=== PATIENT | male | born 1935 | race Caucasian/White ===

== ENCOUNTER → 2022-08-23 14:59 | Outpatient (CLI) | payer MEDICARE, OTHER, SELFPAY ==
--- NOTE | 2022-08-23 | DI.RAD.S_ITS ---
PROCEDURE: XR CHEST 2V INDICATIONS: shortness of breath TECHNIQUE: 2 views of the chest were acquired. COMPARISON: None. FINDINGS: Surgical changes and devices: Dual chamber left cardiac pacer present with pulse generator and leads in expected positions. Lungs and pleura: There is mild prominence of the pulmonary vasculature and mild bilateral interstitial opacities with basilar predominance. Small pleural effusions. Mediastinum: Mediastinal contours are normal. Heart size is enlarged. Bones and chest wall: No suspicious bony abnormalities. Soft tissues appear unremarkable. IMPRESSION: Sequelae of radiographic findings suspicious for mild acute CHF. Dictated by: Dino Nolan [facility] Interpreted: Kamila Del Cid MD on 08/23/2022 at 15:25 Transcribed by: LEXY on 08/23/2022 at 15:26 Approved by: Kamila Del Cid M.D. on 08/23/2022 at 17:29
== END ==
PROVIDERS: PCP Physician Assistant; Referring Provider Physician Assistant; Visit Provider Physician Assistant
DX: R06.02 Shortness of breath (principal); J90 Pleural effusion, not elsewhere classified; I51.7 Cardiomegaly
CPT/HCPCS: 71046

== ENCOUNTER → 2022-09-23 14:15 | Outpatient (CLI) | payer MEDICARE, OTHER, SELFPAY | PROVIDERS: PCP Physician Assistant; Referring Provider Physician Assistant; Visit Provider Nurse Practitioner Family | DX: S51.812A Laceration without foreign body of left forearm, initial encounter (principal); L89.313 Pressure ulcer of right buttock, stage 3; G20 Parkinson's disease | CPT/HCPCS: 11042; 87070; 87075; 87077; 87186; 87205; 97597; 99203; 99213 ==

== ENCOUNTER → 2022-09-30 10:53 | Outpatient (CLI) | payer MEDICARE, OTHER, SELFPAY | PROVIDERS: PCP Physician Assistant; Referring Provider Physician Assistant; Visit Provider Nurse Practitioner Family | DX: S51.812A Laceration without foreign body of left forearm, initial encounter (principal); L89.313 Pressure ulcer of right buttock, stage 3; G20 Parkinson's disease | CPT/HCPCS: 11042; 97597 ==

== ENCOUNTER → 2022-10-07 09:52 | Outpatient (CLI) | payer MEDICARE, OTHER, SELFPAY | PROVIDERS: PCP Physician Assistant; Referring Provider Physician Assistant; Visit Provider Nurse Practitioner Family | DX: L89.313 Pressure ulcer of right buttock, stage 3 (principal); S51.812A Laceration without foreign body of left forearm, initial encounter; G20 Parkinson's disease | CPT/HCPCS: 97597; 99213 ==

== ENCOUNTER → 2022-10-14 10:49 | Outpatient (CLI) | payer MEDICARE, OTHER, SELFPAY | PROVIDERS: PCP Physician Assistant; Referring Provider Physician Assistant; Visit Provider Nurse Practitioner Family | DX: L89.313 Pressure ulcer of right buttock, stage 3 (principal); L89.322 Pressure ulcer of left buttock, stage 2; G20 Parkinson's disease | CPT/HCPCS: 97597; 99213 ==

== ENCOUNTER → 2022-10-21 09:59 | Outpatient (CLI) | payer MEDICARE, OTHER, SELFPAY | PROVIDERS: PCP Physician Assistant; Referring Provider Physician Assistant; Visit Provider Nurse Practitioner Family | DX: L89.313 Pressure ulcer of right buttock, stage 3 (principal); L89.322 Pressure ulcer of left buttock, stage 2; G20 Parkinson's disease | CPT/HCPCS: 11042; 97597; 99213 ==

== ENCOUNTER → 2022-10-28 13:15 | Outpatient (CLI) | payer MEDICARE, OTHER, SELFPAY | PROVIDERS: PCP Physician Assistant; Referring Provider Physician Assistant; Visit Provider Nurse Practitioner Family | DX: L89.313 Pressure ulcer of right buttock, stage 3 (principal); L89.323 Pressure ulcer of left buttock, stage 3; G20 Parkinson's disease | CPT/HCPCS: 97597 ==

== ENCOUNTER → 2022-11-11 09:52 | Outpatient (CLI) | payer MEDICARE, OTHER, SELFPAY | PROVIDERS: PCP Physician Assistant; Referring Provider Physician Assistant; Visit Provider Nurse Practitioner Family | DX: L89.323 Pressure ulcer of left buttock, stage 3 (principal); G20 Parkinson's disease | CPT/HCPCS: 99212; 99213 ==

== ENCOUNTER → 2022-12-05 11:12 | Outpatient (CLI) | payer MEDICARE, OTHER, SELFPAY ==
[2022-12-05 11:44] LABS: Add Manual Diff / Slide Review NO; Basophils Absolute Auto 0 /uL (0-100); Eosinophils Absolute Auto 200 /uL (0-450); Eosinophils Percent Auto 3.4 % (2-4); Hematocrit 37.9 % (41-53); Hemoglobin 12.4 g/dL (13.5-17.5); Lymphocytes Absolute Auto 600 /uL (1100-4500); Lymphocytes Percent Auto 13.4 % (25-40); Mean Corpuscular HGB Conc 32.6 % (30-36); Mean Corpuscular Hemoglobin 29.3 PG (26-34); Mean Corpuscular Volume 89.8 fL (80-100); Monocytes Absolute Auto 500 /uL (0-900); Monocytes Percent Auto 10.1 % (3-14); Neutrophils Absolute Auto 3400 /uL (1500-7000); Neutrophils Percent Auto 72.1 % (50-75); Platelet Count 175 X10^3/uL (150-400); Red Blood Cell Count 4.22 X10^6/uL (4.5-5.9); Red Cell Distribution Width 17.3 % (11.6-14.8); White Blood Cell Count 4.7 X10^3/uL (4.5-11.0)
[2022-12-05 11:58] LABS: Alanine Aminotransferase 10 IU/L (<50); Albumin 3.7 g/dL (3.5-5.0); Albumin Globulin Ratio 1.2 (1.0-2.8); Alkaline Phosphatase 118 U/L (38-126); Aspartate Aminotransferase 32 IU/L (17-59); BUN Creatinine Ratio 28.2 (6-22); Bilirubin Total 1.2 mg/dL (0.2-1.3); Blood Urea Nitrogen 20 mg/dL (9-20); Calcium 8.5 mg/dL (8.4-10.2); Carbon Dioxide 29 mmol/L (22-32); Chloride 102 mmol/L (98-107); Estimated Glomerular Filt Rate > 60 mL/min (>60); Glucose 126 mg/dL (80-110); HEMOLYSIS < 15 (0-50); Potassium 4.1 mmol/L (3.4-5.1); Sodium 138 mmol/L (137-145); Total Protein 6.7 g/dL (6.3-8.2)
[2022-12-05 11:58] LABS: Cholesterol 111 mg/dL (140-199); HDL Cholesterol 43 mg/dL (40-60); LDL Cholesterol Calculated 52 mg/dL (<100); Triglycerides 80 mg/dL (35-150)
[2022-12-05 12:07] LABS: NT-proBNP (BNP-Adult 18+) 2370 pg/mL (<450)
== END ==
PROVIDERS: Internal Medicine Medical Oncology; PCP Physician Assistant; Referring Provider Internal Medicine Cardiovascular Disease; Visit Provider Internal Medicine Cardiovascular Disease
DX: I25.10 Atherosclerotic heart disease of native coronary artery without angina pectoris (principal); R06.09 Other forms of dyspnea; D47.2 Monoclonal gammopathy
CPT/HCPCS: 36415; 80053; 80061; 83880; 85025

== ENCOUNTER → 2022-12-08 14:49 | Outpatient (CLI) | payer MEDICARE, OTHER, SELFPAY ==
--- NOTE | 2022-12-08 | DI.ECHO.S_ITS ---
[place] [facility]---------+ [facility] +---------+ : : [address] : : : : [id number] : : : : Phone: [phone]+ Echocardiogram Report + + :Name: ELIEL HAWKINS Study Date: 12/08/2022 Height: 70 in : :[facility] ReadingLocation: Weight: 177 lb : : Gender: Male BSA: 2.0 m2 : :: 1935 Age: 87 yrs BP: 113/65 mmHg: :Reason For Study: DYSPNEA HR: 60 : :Ordering Physician: SOL, : :AILYN Performed By: PRATIMA GILLIS : :Referring: AILYN LUTZ : + + Interpretation Summary 1) Normal left ventricular size with mildly reduced systolic function (EF 45- 50%). 2) The right ventricle is not well visualized. Grossly, right ventricle with mildly enlarged with normal function. There is a pacemaker lead in the right ventricle. 3) There is moderate to severe aortic stenosis (valve area 0.9cm2, mean gardient 29mmHg, severity ratio 0.28). 4) No prior Echo available for comparison. Procedure: A two-dimensional transthoracic echocardiogram with color flow and Doppler was performed. The study quality was technically adequate. There is no prior echocardiogram noted for this patient. The patient has a paced rhythm. Left Ventricle: The left ventricle is normal in size. There is mild concentric left ventricular hypertrophy. Left ventricular systolic function is mildly reduced. The ejection fraction is estimated to be 45-50%. Diastolic parameters suggest a relaxation abnormality of the left ventricle, consistent with probable normal filling pressures. Right Ventricle: The right ventricle is not well visualized. Grossly, right ventricle with mildly enlarged with normal function. There is a pacemaker lead in the right ventricle. Atria: The left atrium is mildly dilated. The right atrium is moderately dilated. There is no Doppler evidence for an interatrial shunt. Mitral Valve: The mitral valve leaflets appear mildly thickened, but open well. There is mild to moderate mitral annular calcification. There is mild mitral regurgitation. Aortic Valve: The aortic valve is severely calcified. There is moderate to severe aortic stenosis. The aortic valve area indexed to the BSA is 0.44 . The peak aortic velocity is 3.2 m/sec. The aortic valve mean gradient is 29 mmHg. Severity ratio is 0.28. There is mild aortic regurgitation. Tricuspid Valve: The tricuspid valve is normal. There is a trace or physiologic amount of tricuspid regurgitation. Pulmonary artery pressures cannot be estimated because of the lack of a measurable TR jet velocity. Pulmonic Valve: The pulmonic valve is not well seen, but is grossly normal. There is no pulmonic valvular regurgitation. Great Vessels: The aortic root is normal size. The ascending aorta is normal in size. The IVC is of normal diameter and collapses greater than 50% with a sniff. This suggests a low right atrial pressure of 3 mm Hg. Pericardium/ Pleura There is no pericardial effusion. There is no pleural effusion. MMode/2D Measurements & Calculations LVIDd: 4.5 cm LVOT diam: 2.0 cm LVIDs: 3.1 cm Ao root diam: 3.4 cm FS: 31.1 % asc Aorta Diam: 3.9 cm IVSd: 1.2 cm LVPWd: 1.2 cm LV sosa. diameter/BSA (cm/m^2): 2.3 LV sys. diameter/BSA (cm/m^2): 1.6 LA A2 area: 17.8 cm2 RA long axis: 5.6 cm LA A4 area: 22.2 cm2 LA length (vol): 5.4 cm LA vol: 62.5 ml LA vol index: 31.5 ml/m2 LVLs ap4: 7.4 cm LVLd ap2: 8.2 cm LVLs ap2: 7.4 cm TAPSE_phl: 1.9 cm Doppler Measurements & Calculations Ao V2 max: 315.0 cm/sec LVOT Max Clive: 88.1 cm/sec Ao V2 mean: 264.0 cm/sec LV V1 max P.1 mmHg Ao max P.7 mmHg LV V1 VTI: 20.6 cm Ao mean P.0 mmHg LANI(I,D): 0.87 cm2 Ao V2 VTI: 74.1 cm LANI(V,D): 0.88 cm2 sev ratio: 0.28 LANI indexed to BSA (cm^2/m^2): 0.44 MV E max clive: 108.0 cm/sec PA V2 max: 129.0 cm/sec Med Peak E' Clive: 4.3 cm/sec PA V2 mean: 88.1 cm/sec E/E' med: 25.4 PA mean P.0 mmHg Lat Peak E' Clive: 6.8 cm/sec PA pr(Accel): 37.6 mmHg E/E' lat: 15.9 E/e' average: 20.7 MV dec time: 0.19 sec SV(LVOT): 64.7 ml AV VR_phl: 0.28 LANI(VTI)/BSA_phl: 0.44 MV P1/2t-pr_phl: 56.0 msec Reading Physician:01:15 PM
== END ==
PROVIDERS: PCP Physician Assistant; Referring Provider Internal Medicine Cardiovascular Disease; Visit Provider Internal Medicine Cardiovascular Disease
DX: R06.09 Other forms of dyspnea (principal); I51.7 Cardiomegaly; Z95.0 Presence of cardiac pacemaker; I35.0 Nonrheumatic aortic (valve) stenosis
CPT/HCPCS: 93306

== ENCOUNTER 2022-12-23 13:46 | Emergency (ER) | payer MEDICARE, OTHER, SELFPAY ==
[2022-12-23 13:55] VITALS: BP 125/64; PULSE 60; RESP 34; TEMP 36.7; O2SAT 97; BMI 23.6
--- NOTE | 2022-12-23 14:07 | DI.RAD.S_ITS ---
PROCEDURE: XR CHEST 1V INDICATIONS: fall, cough, crackles TECHNIQUE: One view of the chest was acquired. COMPARISON: [facility], CR, XR CHEST 2V, 08/23/2022, 16:06. FINDINGS: Surgical changes and devices: Pacemaking device with dual chamber leads stable over time. Lungs and pleura: Lungs are chronically mildly abnormal with an interstitial prominence. No pleural effusions or pneumothorax. Mediastinum: Mediastinal contours appear normal. Heart size is chronically mildly enlarged. Bones and chest wall: No suspicious bony lesions. Overlying soft tissues appear unremarkable. IMPRESSION: Mild chronic CHF pattern, no definite acute CHF at this time. Dictated by: William Katz M.D. on 12/23/2022 at 14:21 Approved by: William Katz M.D. on 12/23/2022 at 14:22
--- NOTE | 2022-12-23 14:07 | DI.CT.S_ITS ---
PROCEDURE: CT HEAD/BRAIN WO CON INDICATIONS: hit head on eliquis, fall, cough TECHNIQUE: Noncontrast 4.5 mm thick angled axial sections acquired from the foramen magnum to the vertex, with coronal and sagittal reformats. For radiation dose reduction, the following was used: automated exposure control, adjustment of mA and/or kV according to patient size. COMPARISON: None. FINDINGS: Image quality: Excellent. CSF spaces: Basal cisterns are patent. No extra-axial fluid collections. Ventricles are normal in size and shape. Brain: No midline shift. No intracranial masses or hemorrhage. Fry-white matter interface is normal. Skull and face: Calvarium and visualized facial bones are intact, without suspicious lesions. 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 Sinuses: Visualized sinuses and mastoids are clear. IMPRESSION: No acute intracranial pathology. Dictated by: Alexander Villa M.D. on 12/23/2022 at 14:31 Approved by: Alexander Villa M.D. on 12/23/2022 at 14:37
--- NOTE | 2022-12-23 14:08 | ED_ITS ---
HPI - Fall General Chief Complaint: Fall Stated Complaint: GLF Time Seen by Provider: 12/23/22 13:53 Source: patient and EMS Mode of arrival: EMS History of Present Illness HPI Narrative: This is an 87-year-old male with history of Parkinson's, hypertension, dyslipidemia with a pacemaker anticoagulated on Eliquis. Patient states he had a ground level fall today. His states he was at the kitchen table he was coughing a lot they were attempting to get him to the bathroom, she got a rolling chair this has been a little bit more difficulty walking around secondary his cough and sat him in the rolling chair were rolling him towards the bathroom, she is he states he asked her to turn and that is chair started to tip forward and he fell out for words hitting his head, elbow and knee. He has some mild knee pain, headache, patient has some abrasions states his tetanus is up-to-date as last 5 years. States he has some pain at the abrasion on his head but no headache. No vision changes, no neck or back pain, no chest pain or shortness of breath. No abdominal back or flank pain. He states he is had a cough states it has been a little bit productive but he has been swallowing it has not looked at it. Patient denies any new swelling in his extremities. He states he is had some mild constipation but is stooling. No new urinary changes. No fevers or chills. Both patient and states only been about a day that he is had symptoms. He does have a pacemaker he is had 3 cardiac stents, knee surgery x2 and back surgery x2 in the past. He quit smoking in 1962, occasional alcohol but not regularly, no recreational drugs. No known drug allergies. Simi Garcia is his primary care provider. Dr. Norris is his neurologist in [place]. Related Data Home Medications Medication Instructions Recorded Confirmed ascorbic acid (vitamin C) 250 mg 250 mg PO DAILY 08/23/22 08/23/22 tablet (Vitamin C) atorvastatin 80 mg tablet 80 mg PO DAILY 08/23/22 08/23/22 carbidopa 25 mg-levodopa 100 mg 3 tab PO QID 08/23/22 08/23/22 tablet clopidogrel 75 mg tablet 75 mg PO DAILY 08/23/22 08/23/22 coenzyme Q10 100 mg tablet 300 mg PO DAILY 08/23/22 08/23/22 dabigatran etexilate 150 mg capsule 150 mg PO BID 08/23/22 08/23/22 ferrous [id number] conc cap PO 08/23/22 capsule furosemide 20 mg tablet 60 mg PO BID 08/23/22 08/23/22 gabapentin 300 mg tablet 300 mg PO BID 08/23/22 08/23/22 lisinopril 10 mg tablet 10 mg PO BID 08/23/22 08/23/22 magnesium 200 mg tablet 200 mg PO DAILY 08/23/22 08/23/22 omeprazole 10 mg capsule,delayed 10 mg PO DAILY 08/23/22 08/23/22 release potassium chloride 20 mEq 20 meq PO DAILY 08/23/22 08/23/22 tablet,extended release ropinirole 4 mg tablet 4 mg PO DAILY 08/23/22 08/23/22 Previous Rx's Medication Instructions Recorded furosemide 20 mg tablet (Lasix) 60 mg PO BID #18 tabs 12/23/22 Allergies Allergy/AdvReac Type Severity Reaction Status Date / Time No Known Drug Allergies Allergy Verified 12/23/22 13:55 Review of Systems Review of Systems ROS Unobtainable: All systems reviewed & are unremarkable except as noted in HPI and below Patient History Social History Smoking Status: Former smoker Smoking Status: Former smoker alcohol intake frequency: 0-2 drinks per day Alcohol type: hard liquor Substance Use Type: does not use Exam Narrative Exam Narrative: GEN: Patient appears in mild distress. HEAD: Patient has abrasion on the top of his head, no active bleeding, no raccoon/Srinivasan sign. NECK: Nontender, painless range of motion, trachea midline Negative Nexus criteria, there is no midline line tenderness, distracting injury, altered mental status, neuro deficit, recent EtOH. EYES: PERRLA, EOMI ENT: External inspection normal, trachea is midline, TM's are normal no he motypanum, Nares are clear, no septal hematoma, no dental or oral injury, airway is normal and with normal occlusion, No bony tenderness RESP: Chest is nontender and has symmetric movement, no ecchymosis, breath sounds are normal no crackles, wheezes or rales CVS: Heart sounds are normal, no murmur noted, No JVD. ABG/GI: Nontender, soft, normal bowel sounds, no distention, no organomegaly, pelvic rock is negative NEURO: Oriented AOx3, neuro is grossly intact, sensation and motor is normal all 4 extremities moving, cranial nerves II through XII are intact, GCS is 15, patient does have constant rolling tremor of his upper extremity and torso. PSYCH: Normal mood and affect SKIN: Patient has a 2 x 4 cm abrasion on his scalp the top of his head, he has a small skin tear so proximally 2 cm at the right elbow and an abrasion that is about a cm in circumference over his right knee., warm and dry, no crepitus and without decubitus BACK: No CVA tenderness, no vertebral tenderness, no step-off's, no crepitus EXT: Atraumatic other than abrasions full range of motion. No bony tenderness to palpation of all four extremities. Hips are nontender, no pedal edema, normal color and temperature, normal range of motion of extremities with normal tendon exam, 2+ pulses in all four extremities Initial Vital Signs Initial Vital Signs: Vital Signs Temperature 98.1 F 12/23/22 13:55 Pulse Rate 60 12/23/22 13:55 Respiratory Rate 34 H 12/23/22 13:55 Blood Pressure 125/64 12/23/22 13:55 Pulse Oximetry 97 12/23/22 13:55 Oxygen Delivery Method Room Air 12/23/22 13:55 Course Orders Ordered: ED Orders 12/23/22 14:05 BNP [NT-proBNP (BNP-Adult 18+)] Stat CBC Auto Diff [Complete Blood Count AUTO DIFF] Stat CMP [Comprehensive Metabolic Panel] Stat Lipase Stat Respiratory Panel (Film Array) Stat Troponin & CK Cardiac Panel Stat 12/23/22 14:07 CT head/brain wo con Stat Chest [XR chest 1V] Stat 12/23/22 14:37 EKG-12 Lead Stat Discontinued Medications Furosemide (Furosemide 40 Mg/4 Ml Vial) 40 mg IV NOW ONE Stop: 12/23/22 15:02 Last Admin: 12/23/22 15:48 Dose: 40 mg Documented By: MIKE Vital Signs Vital signs: Vital Signs - 8 hr 12/23/22 13:55 12/23/22 15:34 Temperature 98.1 F Pulse Rate 60 60 Respiratory Rate 34 H Blood Pressure 125/64 156/84 H Pulse Oximetry 97 97 Oxygen Delivery Method Room Air Room Air MDM - Fall Lab Data 12/23/22 14:05 12/23/22 14:05 Labs: Lab Results 12/23/22 12/23/22 12/23/22 Range/Units 14:05 14:05 14:05 WBC 9.9 (4.5-11.0) X10^3/uL RBC 4.10 L (4.5-5.9) X10^6/uL Hgb 12.2 L (13.5-17.5) g/dL Hct 36.6 L (41-53) % MCV 89.3 (80-100) fL MCH 29.7 (26-34) PG MCHC 33.2 (30-36) % RDW 16.2 H (11.6-14.8) % Plt Count 145 L (150-400) X10^3/uL Neut % (Auto) 86.1 H (50-75) % Lymph % (Auto) 3.4 L (25-40) % [facility] % (Auto) 8.8 (3-14) % Eos % (Auto) 0.7 L (2-4) % Baso % (Auto) 1.0 (0-2) % Neut # (Auto) 8500 H (2445-6040) /uL Lymph # (Auto) 300 L (3982-0765) /uL [facility] # (Auto) 900 (0-900) /uL Eos # (Auto) 100 (0-450) /uL Baso # (Auto) 100 (0-100) /uL Sodium 136 L (137-145) mmol/L Potassium 4.0 (3.4-5.1) mmol/L Chloride 100 (98-107) mmol/L Carbon Dioxide 27 (22-32) mmol/L BUN 20 (9-20) mg/dL Creatinine 0.69 (0.66-1.25) mg/dL Estimated GFR > 60 (>60) mL/min BUN/Creatinine Ratio 29.0 H (6-22) Glucose 157 H (80-110) mg/dL Calcium 8.5 (8.4-10.2) mg/dL Total Bilirubin 1.5 H (0.2-1.3) mg/dL AST 31 (17-59) IU/L ALT 10 (<50) IU/L Alkaline Phosphatase 126 (38-126) U/L Total Creatine Kinase 99 (55-170) U/L CK-MB (CK-2) TNP CK-MB (CK-2) Rel Index TNP Troponin I 0.022 (0.01-0.034) ng/mL NT-Pro-B Natriuret Pep 3170 H (<450) pg/mL Total Protein 6.6 (6.3-8.2) g/dL Albumin 3.5 (3.5-5.0) g/dL Globulin 3.1 (1.7-4.1) g/dL Albumin/Globulin Ratio 1.1 (1.0-2.8) Lipase 104 (23-300) U/L Chlamy pneumoniae PCR Not detected (Not Detect) Adenovirus (PCR) Not detected (Not Detect) B. pertussis DNA (PCR) Not detected (Not Detecte) B.parapertussis DNA PCR Not detected (Not Detecte) Coronavirus OC43 (PCR) Not detected (Not Detect) Coronavirus HKU1 (PCR) Not detected (Not Detect) Coronavirus 229E (PCR) Not detected (Not Detect) SARS-CoV-2 (PCR) Not detected (Not Detecte) Coronavirus NL63 (PCR) Not detected (Not Detect) Human Metapneumovir PCR Not detected (Not Detect) Influenza Type A (PCR) Not detected (Not Detect) Influenza Type B (PCR) Not detected (Not Detect) M. pneumoniae (PCR) Not detected (Not Detect) Parainfluenza 1 (PCR) Not detected (Not Detect) Parainfluenza 2 (PCR) Not detected (Not Detect) Parainfluenza 3 (PCR) Not detected (Not Detect) Parainfluenza 4 (PCR) Not detected (Not Detect) RSV (PCR) Not detected (Not Detect) Entero/Rhino (PCR) Not detected (Not Detect) Imaging Data CT scan - head: Radiologist's Impression: [address] [address] [address] Scan Report Signed Patient: Toni Esparza MR#: [id number] : 1935 Acct:[id number] Age/Sex: 87 / M Date of Service: 12/23/22 Loc: ED Accession Number: [id number] ?? Procedure: CT head/brain wo con Ordering Provider: Harriet Ochoa D.O. PROCEDURE:? CT HEAD/BRAIN WO CON ? INDICATIONS:? hit head on eliquis, fall, cough ? TECHNIQUE:? Noncontrast 4.5 mm thick angled axial sections acquired from the foramen magnum to the vertex, with coronal and sagittal reformats.? For radiation dose reduction, the following was used:? automated exposure control, adjustment of mA and/or kV according to patient size.? ? COMPARISON:? None. ? FINDINGS:? Image quality:? Excellent.? ? CSF spaces:? Basal cisterns are patent.? No extra-axial fluid collections.? Ventricles are normal in size and shape.? ? Brain:? No midline shift.? No intracranial masses or hemorrhage.? Fry-white matter interface is normal.? ? Skull and face:? Calvarium and visualized facial bones are intact, without suspicious lesions.? Dense bone lesion of the anterior left calvarium, presumably an o steoma. ? Sinuses:? Visualized sinuses and mastoids are clear.? ? IMPRESSION:? No acute intracranial pathology.? ? ? Dictated by: Alexander Villa M.D. on 12/23/2022 at 14:31 ? ? Approved by: Alexander Villa M.D. on 12/23/2022 at 14:37?? ECG Data Attestation: I personally reviewed and interpreted this ECG as follows: Prior ECG tracings: not available for review Interpretation: Ventricularly paced rhythm rate of 60 QRS of 134 QTC of 500. No priors for comparison. MDM Narrative Medical decision making narrative: This is an 87-year-old male with ground level fall appears to be mechanical. Patient does have an abrasion on his scalp and some skin tears. Patient is on Eliquis so head CT was obtained, he does not have any neck or back pain in his appropriate for spinal clearance clinically. Patient does have quite a wet cough and has crackles on exam he states it is only been a day. Workup shows ventricularly paced rhythm he is known pacemaker. Anemia but with stable hemoglobin at 12, platelets are 145 he has been 148 back in August. Patient's sodium 136 normal potassium, renal function, glucose of 157, troponin was negative, bilirubin slightly elevated at 1.5 but normal LFTs, BNP is 3100 he has a prior in November that was 2300. Respiratory panel is negative and patient's chest x-ray shows mild CHF pattern. Patient has been able to lay flat in the department without any issue. Patient was given Lasix 40 mg IV in the department. Patient's medication list shows he is taking 40 mg twice daily will increase to 60 mg twice daily for 3 days with plan for follow up with his primary care as he does have some moderate to severe aortic stenosis on echo from month ago. He does not appear to be in florid heart failure today but should have close follow-up. Patient's skin tears were dressed. Patient has an echo from 12/08/2022 normal left ventricle with EF of 45-50, moderate to severe aortic stenosis no prior echos right ventricle was not well visualized but was mildly enlarged with normal function and pacemaker lead in the right ventricle. Discharge Plan Departure Patient Disposition: Home Clinical Impression: CHF (congestive heart failure), Fall, Abrasion of scalp, Skin tear of left upper extremity, Abrasion of knee, left Activity Restrictions/Additional Instructions: Follow-up with your physician for recheck. Your echo from November does show aortic stenosis and you appear to have some fluid overload or congestive heart failure today. This should be monitored closely to make sure you are improving and do not need to additional workup. Increase your furosemide or water pill to 60 mg (3 tablets) twice daily x3 days. You can start this tomorrow. Prescription sent to [facility]. Please return for new or worsening chest pain, shortness of breath, new swelling in your extremities, difficulty lying flat, lightheadedness or passing out, severe headaches, persistent vomiting or other new or concerning changes Prescriptions: New furosemide [Lasix] 20 mg tablet 60 mg PO BID Qty: 18 0RF No Action atorvastatin 80 mg Tablet 80 mg PO DAILY clopidogrel 75 mg Tablet 75 mg PO DAILY omeprazole 10 mg Capsule,Delayed Release(Dr/Ec) 10 mg PO DAILY ascorbic acid (vitamin C) [Vitamin C] 250 mg Tablet 250 mg PO DAILY lisinopril 10 mg Tablet 10 mg PO BID furosemide 20 mg Tablet 60 mg PO BID carbidopa-levodopa 25-100 mg Tablet 3 tab PO QID ropinirole 4 mg Tablet 4 mg PO DAILY magnesium 200 mg Tablet 200 mg PO DAILY Iron Complex/C/B12 Capsule PO gabapentin 300 mg Tablet 300 mg PO BID dabigatran etexilate 150 mg Capsule 150 mg PO BID coenzyme Q10 100 mg Tablet 300 mg PO DAILY potassium chloride 20 mEq Tablet Extended Release 20 meq PO DAILY Rx Instructions: ALWAYS USE WHEN FUROSEMIDE IS TAKEN Referrals: Simi Garcia PA-C [Primary Care Provider] - Stand Alone Forms: Patient Portal/API
[2022-12-23 14:19] LABS: Add Manual Diff / Slide Review NO; Basophils Absolute Auto 100 /uL (0-100); Eosinophils Absolute Auto 100 /uL (0-450); Eosinophils Percent Auto 0.7 % (2-4); Hematocrit 36.6 % (41-53); Hemoglobin 12.2 g/dL (13.5-17.5); Lymphocytes Absolute Auto 300 /uL (1100-4500); Lymphocytes Percent Auto 3.4 % (25-40); Mean Corpuscular HGB Conc 33.2 % (30-36); Mean Corpuscular Hemoglobin 29.7 PG (26-34); Mean Corpuscular Volume 89.3 fL (80-100); Monocytes Absolute Auto 900 /uL (0-900); Monocytes Percent Auto 8.8 % (3-14); Neutrophils Absolute Auto 8500 /uL (1500-7000); Neutrophils Percent Auto 86.1 % (50-75); Platelet Count 145 X10^3/uL (150-400); Red Cell Distribution Width 16.2 % (11.6-14.8); White Blood Cell Count 9.9 X10^3/uL (4.5-11.0)
[2022-12-23 14:30] LABS: Alanine Aminotransferase 10 IU/L (<50); Albumin 3.5 g/dL (3.5-5.0); Albumin Globulin Ratio 1.1 (1.0-2.8); Alkaline Phosphatase 126 U/L (38-126); Aspartate Aminotransferase 31 IU/L (17-59); Bilirubin Total 1.5 mg/dL (0.2-1.3); Blood Urea Nitrogen 20 mg/dL (9-20); Calcium 8.5 mg/dL (8.4-10.2); Carbon Dioxide 27 mmol/L (22-32); Chloride 100 mmol/L (98-107); Creatine Kinase 99 U/L (55-170); Estimated Glomerular Filt Rate > 60 mL/min (>60); Globulin 3.1 g/dL (1.7-4.1); Glucose 157 mg/dL (80-110); HEMOLYSIS < 15 (0-50); Lipase 104 U/L (23-300); Sodium 136 mmol/L (137-145); Total Protein 6.6 g/dL (6.3-8.2)
[2022-12-23 14:42] LABS: NT-proBNP (BNP-Adult 18+) 3170 pg/mL (<450); Troponin I 0.022 ng/mL (0.01-0.034)
[2022-12-23 15:23] LABS: Adenovirus Not Detected (Not Detect); B. parapertussis Not Detected (Not Detecte); Bordetella pertussis Not Detected (Not Detecte); Chlamydophila pneumoniae Not Detected (Not Detect); Coronavirus 229E Not Detected (Not Detect); Coronavirus HKU1 Not Detected (Not Detect); Coronavirus NL 63 Not Detected (Not Detect); Coronavirus OC43 Not Detected (Not Detect); Human Metapneumovirus Not Detected (Not Detect); Human Rhinovirus/Enterovirus Not Detected (Not Detect); Influenza A Not Detected (Not Detect); Influenza B Not Detected (Not Detect); Mycoplasma pneumoniae Not Detected (Not Detect); Parainfluenza Virus 1 Not Detected (Not Detect); Parainfluenza Virus 2 Not Detected (Not Detect); Parainfluenza Virus 3 Not Detected (Not Detect); Parainfluenza Virus 4 Not Detected (Not Detect); Respiratory Syncytial Virus Not Detected (Not Detect); SARS- CoV-2 Not Detected (Not Detecte)
[2022-12-23 15:34] VITALS: BP 156/84; PULSE 60; O2SAT 97
[2022-12-23] MEDS: FUROSEMIDE 40 MG/4 ML VIAL IV (15:48)
== END 2022-12-23 16:10 | disposition home or self-care (01) ==
PROVIDERS: Emergency Provider Emergency Medicine; PCP Physician Assistant
DX: S00.01XA Abrasion of scalp, initial encounter (principal); S41.112A Laceration without foreign body of left upper arm, initial encounter; S80.212A Abrasion, left knee, initial encounter; I50.9 Heart failure, unspecified; R05.9 Cough, unspecified; R79.89 Other specified abnormal findings of blood chemistry; Z20.822 Contact with and (suspected) exposure to COVID-19; Z79.01 Long term (current) use of anticoagulants; Z95.0 Presence of cardiac pacemaker
CPT/HCPCS: 70450; 71045; 80053; 82550; 83690; 83880; 84484; 85025; 87633; 93005; 96374; 99283; 99284; J1940

== ENCOUNTER 2023-01-16 08:06 | Emergency (ER) | payer MEDICARE, OTHER, SELFPAY ==
[2023-01-16] VITALS (10 sets, daily range): BP systolic 124–181; BP diastolic 65–93; PULSE 60; RESP 20–26; TEMP 36.7; O2SAT 94–99; BMI 26.1
--- NOTE | 2023-01-16 08:07 | DI.RAD.S_ITS ---
PROCEDURE: XR CHEST 1V INDICATIONS: SOB TECHNIQUE: One view of the chest was acquired. COMPARISON: [facility], CR, XR CHEST 2V, 08/23/2022, 16:06. [facility], CR, XR CHEST 1V, 12/23/2022, 14:07. FINDINGS: Surgical changes and devices: There is a cardiac pacemaker. Lungs and pleura: Interstitial infiltrates in right lung. No pleural effusions or pneumothorax. Mediastinum: Mediastinal contours appear normal. Heart size is mildly increased. Bones and chest wall: No suspicious bony lesions. Overlying soft tissues appear unremarkable. IMPRESSION: 1. Interstitial infiltrates in right lung consistent with pneumonia or asymmetric pulmonary edema. 2. Mild cardiomegaly. Dictated by: Kamila Del Cid M.D. on 01/16/2023 at 9:05 Approved by: Kamila Del Cid M.D. on 01/16/2023 at 9:07
[2023-01-16 08:16] LABS: Add Manual Diff / Slide Review NO; Basophils Absolute Auto 100 /uL (0-100); Basophils Percent Auto 0.8 % (0-2); Eosinophils Absolute Auto 500 /uL (0-450); Eosinophils Percent Auto 6.9 % (2-4); Hematocrit 36.8 % (41-53); Hemoglobin 12.4 g/dL (13.5-17.5); Lymphocytes Absolute Auto 600 /uL (1100-4500); Lymphocytes Percent Auto 8.4 % (25-40); Mean Corpuscular HGB Conc 33.7 % (30-36); Mean Corpuscular Hemoglobin 29.9 PG (26-34); Mean Corpuscular Volume 88.8 fL (80-100); Monocytes Absolute Auto 800 /uL (0-900); Neutrophils Absolute Auto 5100 /uL (1500-7000); Neutrophils Percent Auto 72.9 % (50-75); Platelet Count 194 X10^3/uL (150-400); Red Blood Cell Count 4.14 X10^6/uL (4.5-5.9); Red Cell Distribution Width 16.3 % (11.6-14.8)
--- NOTE | 2023-01-16 08:18 | ED.GENADULT ---
HPI - General Adult General Chief complaint: Chest Pain Stated complaint: chest pain Time Seen by Provider: 01/16/23 08:06 Source: patient, family and EMS Mode of arrival: EMS Limitations: no limitations History of Present Illness HPI narrative: Patient is an 87-year-old male. Has a history of Parkinson's disease. Also has a history of pacemaker placement. Is on anticoagulation (Pradaxa) also has a history of heart failure. Was seen here in the emergency department approximately 1 month ago for a fall. He received a workup and Lasix and was eventually discharged home. He returns to emergency department this morning by EMS. He states that this morning he was sitting in his chair. He had some chest discomfort that has now resolved. He is also been having some shortness of breath that is not necessarily worse now but has been progressively worsening over the past week or so. He also has lower extremity swelling that again has been worsening over the past week. When he was here 1 month ago his Lasix was increased for a couple days and then went back to its normal dose. During that time he stated that he did feel somewhat better. He states that he does have weakness at home and spends most of his time in a wheelchair. Patient is not on home oxygen. Related Data Home Medications Medication Instructions Recorded Confirmed ascorbic acid (vitamin C) 250 mg 250 mg PO DAILY 08/23/22 08/23/22 tablet (Vitamin C) atorvastatin 80 mg tablet 80 mg PO DAILY 08/23/22 08/23/22 carbidopa 25 mg-levodopa 100 mg 3 tab PO QID 08/23/22 08/23/22 tablet clopidogrel 75 mg tablet 75 mg PO DAILY 08/23/22 08/23/22 coenzyme Q10 100 mg tablet 300 mg PO DAILY 08/23/22 08/23/22 dabigatran etexilate 150 mg capsule 150 mg PO BID 08/23/22 08/23/22 ferrous [id number] conc cap PO 08/23/22 capsule furosemide 20 mg tablet 60 mg PO BID 08/23/22 08/23/22 gabapentin 300 mg tablet 300 mg PO BID 08/23/22 08/23/22 lisinopril 10 mg tablet 10 mg PO BID 08/23/22 08/23/22 magnesium 200 mg tablet 200 mg PO DAILY 08/23/22 08/23/22 omeprazole 10 mg capsule,delayed 10 mg PO DAILY 08/23/22 08/23/22 release potassium chloride 20 mEq 20 meq PO DAILY 08/23/22 08/23/22 tablet,extended release ropinirole 4 mg tablet 4 mg PO DAILY 08/23/22 08/23/22 Previous Rx's Medication Instructions Recorded furosemide 20 mg tablet (Lasix) 60 mg PO BID #18 tabs 12/23/22 Allergies Allergy/AdvReac Type Severity Reaction Status Date / Time No Known Drug Allergies Allergy Verified 12/23/22 13:55 Review of Systems Review of Systems ROS Unobtainable: All systems reviewed & are unremarkable except as noted in HPI and below Patient History Medical History (Updated 01/16/23 @ 13:07 by Prashant Sanabria DO) MGUS (monoclonal gammopathy of unknown significance) Pancytopenia Social History Smoking Status: Former smoker Smoking Status: Former smoker alcohol intake frequency: 0-2 drinks per day Alcohol type: hard liquor Substance Use Type: does not use Exam Initial Vital Signs Initial Vital Signs: Vital Signs Temperature 98.1 F 01/16/23 08:07 Pulse Rate 60 01/16/23 08:07 Respiratory Rate 20 01/16/23 08:07 Blood Pressure 181/92 H 01/16/23 08:07 Pulse Oximetry 99 01/16/23 08:07 Oxygen Delivery Method Room Air 01/16/23 08:07 Const General: cooperative and comfortable HENMT Head: normal to inspection and normocephalic Resp Effort & Inspection: normal respiratory effort and tachypneic Auscultation: rales Cardio Rate: regular rate Rhythm: regular rhythm Heart Sounds: murmur GI Inspection: normal to inspection Skin General: no rashes or lesions noted Neuro General: patient alert, patient awake, patient oriented x3 and moves all extremities Cognition: normal cognition Speech: speech normal Extrem General: edema Psych Appearance: grossly normal and well kempt Course Orders Ordered: ED Orders 01/16/23 08:07 XR chest 1V Stat EKG-12 Lead Stat 01/16/23 08:12 Complete Blood Count AUTO DIFF Stat Comprehensive Metabolic Panel Stat Lipase Stat Magnesium Stat NT-proBNP (BNP-Adult 18+) Stat PTT Partial Thromboplastin Werner Stat Prothrombin Time INR Stat Troponin & CK Cardiac Panel Stat Discontinued Medications Furosemide (Furosemide 40 Mg/4 Ml Vial) 40 mg IV NOW ONE Stop: 01/16/23 08:48 Last Admin: 01/16/23 09:25 Dose: 40 mg Documented By: AMU Vital Signs Vital signs: Vital Signs - 8 hr 01/16/23 08:07 01/16/23 09:30 01/16/23 08:13 Temperature 98.1 F Pulse Rate 60 60 60 Respiratory Rate 20 24 20 Blood Pressure 181/92 H 174/93 H Pulse Oximetry 99 94 97 Oxygen Delivery Method Room Air Room Air 01/16/23 08:30 01/16/23 08:30 01/16/23 10:08 Temperature Pulse Rate 60 60 Respiratory Rate 23 20 Blood Pressure 163/80 H 167/78 H Pulse Oximetry 96 96 Oxygen Delivery Method Room Air 01/16/23 10:45 01/16/23 11:00 01/16/23 11:30 Temperature Pulse Rate 60 60 60 Respiratory Rate 24 26 H 26 H Blood Pressure 144/70 H 135/65 124/67 Pulse Oximetry 96 96 96 Oxygen Delivery Method Room Air Room Air Room Air 01/16/23 12:00 01/16/23 12:30 Temperature Pulse Rate 60 60 Respiratory Rate 25 H 26 H Blood Pressure 146/74 H 153/76 H Pulse Oximetry 98 96 Oxygen Delivery Method Room Air Room Air Medical Decision Making Medical Records Medical records reviewed: Yes I reviewed the patient's medical records. Lab Data Lab results reviewed: Yes I reviewed the patient's lab results. 01/16/23 08:12 01/16/23 08:12 Labs: Lab Results 01/16/23 01/16/23 01/16/23 Range/Units 08:12 08:12 08:12 WBC 7.0 (4.5-11.0) X10^3/uL RBC 4.14 L (4.5-5.9) X10^6/uL Hgb 12.4 L (13.5-17.5) g/dL Hct 36.8 L (41-53) % MCV 88.8 (80-100) fL MCH 29.9 (26-34) PG MCHC 33.7 (30-36) % RDW 16.3 H (11.6-14.8) % Plt Count 194 (150-400) X10^3/uL Neut % (Auto) 72.9 (50-75) % Lymph % (Auto) 8.4 L (25-40) % [place] % (Auto) 11.0 (3-14) % Eos % (Auto) 6.9 H (2-4) % Baso % (Auto) 0.8 (0-2) % Neut # (Auto) 5100 (8363-9821) /uL Lymph # (Auto) 600 L (6218-5187) /uL [place] # (Auto) 800 (0-900) /uL Eos # (Auto) 500 H (0-450) /uL Baso # (Auto) 100 (0-100) /uL PT 15.3 H (10.1-12.7) SECONDS INR 1.3 (0.9-1.3) APTT 51 H (26-36) SECONDS Sodium 137 (137-145) mmol/L Potassium 4.9 (3.4-5.1) mmol/L Chloride 99 (98-107) mmol/L Carbon Dioxide 31 (22-32) mmol/L BUN 24 H (9-20) mg/dL Creatinine 0.92 (0.66-1.25) mg/dL Estimated GFR > 60 (>60) mL/min BUN/Creatinine Ratio 26.1 H (6-22) Glucose 107 (80-110) mg/dL Calcium 9.0 (8.4-10.2) mg/dL Magnesium 2.2 (1.6-2.3) mg/dL Total Bilirubin 1.6 H (0.2-1.3) mg/dL AST 52 (17-59) IU/L ALT 15 (<50) IU/L Alkaline Phosphatase 152 H (38-126) U/L Total Creatine Kinase 231 H (55-170) U/L CK-MB (CK-2) 5.54 H (<2.37) ng/mL CK-MB (CK-2) Rel Index 2.4 (1.5-5.0) % Troponin I 0.035 H (0.01-0.034) ng/mL NT-Pro-B Natriuret Pep 3850 H (<450) pg/mL Total Protein 7.7 (6.3-8.2) g/dL Albumin 4.3 (3.5-5.0) g/dL Globulin 3.4 (1.7-4.1) g/dL Albumin/Globulin Ratio 1.3 (1.0-2.8) Lipase 92 (23-300) U/L Imaging Data Chest x-ray: Radiologist's Impression: PROCEDURE:? XR CHEST 1V ? INDICATIONS:? SOB ? TECHNIQUE:? One view of the chest was acquired.? ? COMPARISON:? Merged With [facility], CR, XR CHEST 2V, 08/23/2022, 16:06.? Merged With [facility], CR, XR CHEST 1V, 12/23/2022, 14:07. ? FINDINGS:? ? Surgical changes and devices:? There is a cardiac pacemaker.? ? Lungs and pleura:? Interstitial infiltrates in right lung.? No pleural effusions or pneumothorax.? ? Mediastinum:? Mediastinal contours appear normal.? Heart size is mildly increased.? ? Bones and chest wall:? No suspicious bony lesions.? Overlying soft tissues appear unremarkable.? ? IMPRESSION:? ? 1. Interstitial infiltrates in right lung consistent with pneumonia or asymmetric pulmonary edema.? 2. Mild cardiomegaly.? ECG Data Attestation: I personally reviewed and interpreted this ECG as follows: Prior ECG tracings: available for review Interpretation: Ventricularly paced Rate is 60 Unchanged from EKG from 12/23/2022 MDM Narrative Medical decision making narrative: Patient clinically has fluid overload. Was not hypoxic upon arrival but was tachypneic. He was given Lasix which he did diurese. He stated that he felt better afterwards. Was less short of breath. He is no chest pain. He does have lower extremity swelling. Did have a discussion with his family to include his and his daughter who are at bedside and him. He is a DNR but is okay with medical treatment. The plan is to have him increase his Lasix for the next couple days. We discussed how he could do this at home to include taking 3 tablets twice a day or 2 tablets 3 times a day. He can also adjust this as needed. He was given strict return precautions. Both he and his family expressed understanding and agreement. Discharge Plan Departure Patient Disposition: Home Clinical Impression: Congestive heart failure Instructions: DI for Heart Failure Activity Restrictions/Additional Instructions: Recommend that you continue to take all of your medications as directed however you can increase your Lasix/furosemide like we discussed. You can also decrease the amount that you were taking if you start to feel better. Contact your heating and refrigeration inspector and your primary doctor for a follow-up. Return to the emergency department for new or worsening symptoms. Prescriptions: No Action atorvastatin 80 mg Tablet 80 mg PO DAILY clopidogrel 75 mg Tablet 75 mg PO DAILY omeprazole 10 mg Capsule,Delayed Release(Dr/Ec) 10 mg PO DAILY ascorbic acid (vitamin C) [Vitamin C] 250 mg Tablet 250 mg PO DAILY lisinopril 10 mg Tablet 10 mg PO BID furosemide 20 mg Tablet 60 mg PO BID carbidopa-levodopa 25-100 mg Tablet 3 tab PO QID ropinirole 4 mg Tablet 4 mg PO DAILY magnesium 200 mg Tablet 200 mg PO DAILY Iron Complex/C/B12 Capsule PO gabapentin 300 mg Tablet 300 mg PO BID dabigatran etexilate 150 mg Capsule 150 mg PO BID coenzyme Q10 100 mg Tablet 300 mg PO DAILY potassium chloride 20 mEq Tablet Extended Release 20 meq PO DAILY Rx Instructions: ALWAYS USE WHEN FUROSEMIDE IS TAKEN furosemide [Lasix] 20 mg tablet 60 mg PO BID Qty: 18 0RF Referrals: Simi Garcia PA-C [Primary Care Provider] - Stand Alone Forms: Patient Portal/API
[2023-01-16 08:23] LABS: INR 1.3 (0.9-1.3); Prothrombin Time 15.3 SECONDS (10.1-12.7)
[2023-01-16 08:26] LABS: PTT Partial Thromboplastin Tim 51 SECONDS (26-36)
[2023-01-16 08:29] LABS: Alanine Aminotransferase 15 IU/L (<50); Albumin 4.3 g/dL (3.5-5.0); Albumin Globulin Ratio 1.3 (1.0-2.8); Alkaline Phosphatase 152 U/L (38-126); Aspartate Aminotransferase 52 IU/L (17-59); BUN Creatinine Ratio 26.1 (6-22); Bilirubin Total 1.6 mg/dL (0.2-1.3); Blood Urea Nitrogen 24 mg/dL (9-20); Carbon Dioxide 31 mmol/L (22-32); Chloride 99 mmol/L (98-107); Creatine Kinase 231 U/L (55-170); Estimated Glomerular Filt Rate > 60 mL/min (>60); Globulin 3.4 g/dL (1.7-4.1); Glucose 107 mg/dL (80-110); HEMOLYSIS < 15 (0-50); Lipase 92 U/L (23-300); Magnesium 2.2 mg/dL (1.6-2.3); Potassium 4.9 mmol/L (3.4-5.1); Sodium 137 mmol/L (137-145); Total Protein 7.7 g/dL (6.3-8.2)
[2023-01-16 08:40] LABS: NT-proBNP (BNP-Adult 18+) 3850 pg/mL (<450); Troponin I 0.035 ng/mL (0.01-0.034)
[2023-01-16 08:44] LABS: CKMB % Relative Index 2.4 % (1.5-5.0); Creatine Kinase MB 5.54 ng/mL (<2.37)
[2023-01-16] MEDS: FUROSEMIDE 40 MG/4 ML VIAL IV (09:25)
== END 2023-01-16 13:25 | disposition home or self-care (01) ==
PROVIDERS: Emergency Provider Emergency Medicine; PCP Physician Assistant
DX: I50.9 Heart failure, unspecified (principal); R06.02 Shortness of breath; Z95.0 Presence of cardiac pacemaker; Z79.01 Long term (current) use of anticoagulants
CPT/HCPCS: 36415; 71045; 80053; 82550; 82553; 83690; 83735; 83880; 84484; 85025; 85610; 85730; 93005; 96374; 99284; J1940